=== PATIENT | male | born 1985 | race Two or more races ===

== ENCOUNTER 2023-12-16 14:42 | Emergency (ER) | payer MEDICAID ==
[~2023-12-16] VITALS: Ht 177.8 cm; Wt 91.0 kg
[2023-12-16 15:03] VITALS: O2SAT 98
[2023-12-16 19:18] LABS: CLARITY URINE CLEAR (CLEAR); COLOR URINE YELLOW (YELLOW); GLUCOSE URINE NEGATIVE (NEGATIVE); KETONES URINE NEGATIVE (NEGATIVE); LEUKOCYTE ESTERASE URINE NEGATIVE (NEGATIVE); NITRITE URINE NEGATIVE (NEGATIVE); OCCULT BLOOD URINE NEGATIVE (NEGATIVE); PH URINE 5.5 (4.5-8.0); PROTEIN URINE NEGATIVE (NEGATIVE); SPECIFIC GRAVITY URINE 1.023 (1.005-1.030)
[2023-12-16] MEDS ORDERED: DOXY100T2 MT (19:20)
[2023-12-16] MEDS: CEFTRIAXONE SODIUM 500MG VIAL IM ONE (20:10)
[2023-12-16 20:17] VITALS: BP 118/80; PULSE 72; RESP 19; TEMP 36.66960; O2SAT 98
[2023-12-19 07:12] LABS: CHLAMYDIA TRACHOMATIS NAA Negative (Negative); NEISSERIA GONORRHOEAE NAA Negative (Negative)
== END 2023-12-16 20:18 | disposition home or self-care (01) ==
LOC: ER 15:06
DX: A64 Unspecified sexually transmitted disease (principal)
CPT/HCPCS: 99283; 87491; 87591; 81003; 96372; J0696

== ENCOUNTER 2023-12-31 11:36 | Emergency (ER) | payer MEDICAID ==
[~2023-12-31] VITALS: Ht 177.8 cm; Wt 100.0 kg
[~2023-12-31 11:36] MED LIST: DOXY100T2 MT
[2023-12-31 11:51] VITALS: O2SAT 94
[2023-12-31 11:57] VITALS: TEMP 98.3; O2SAT 100
[2023-12-31] MEDS ORDERED: KETOROLAC 30MG/ML VIAL IM ONE (13:30)
[2023-12-31] MEDS ORDERED: CYCL5TAB MT (13:33)
[2023-12-31] MEDS ORDERED: NAPR-681 MT (13:33)
[2023-12-31 15:54] VITALS: BP 129/81; PULSE 67; RESP 18
[2023-12-31] MEDS: KETOROLAC 30MG/ML VIAL IM NR (15:54)
== END 2023-12-31 15:55 | disposition home or self-care (01) ==
LOC: ER 11:36
DX: S76.912A Strain of unspecified muscles, fascia and tendons at thigh level, left thigh, initial encounter (principal); X58.XXXA Exposure to other specified factors, initial encounter; Y93.89 Activity, other specified; Y92.89 Other specified places as the place of occurrence of the external cause; Y99.8 Other external cause status
CPT/HCPCS: 93922; 93971; 96372; 99285; J1885; Z7610